=== PATIENT | female | born 1965 | race Caucasian/White ===

== ENCOUNTER 2024-07-27 01:20 | Inpatient (IN) | payer OTHER ==
[~2024-07-27] VITALS: Ht 160 cm; Wt 63.5 kg
[2024-07-27 03:03] LABS: BASOPHILS # (AUTO) 0.1 K/UL (0.0-0.2); BASOPHILS % (AUTO) 0.9 % (0.0-2.0); EOSINOPHILS # (AUTO) 0.1 K/uL (0.0-0.7); EOSINOPHILS % (AUTO) 1.2 % (0.0-7.0); HEMATOCRIT 43.9 % (31.2-41.9); HEMOGLOBIN 14.6 g/dL (10.9-14.3); LYMPHOCYTES # (AUTO) 1.5 K/uL (0.8-4.8); MEAN CORPUSCULAR HEMOGLOBIN 29.3 uug (24.7-32.8); MEAN CORPUSCULAR HGB CONC 33 g/dL (32.3-35.6); MEAN CORPUSCULAR VOLUME 87.9 fL (75.5-95.3); MONOCYTES # (AUTO) 0.4 K/uL (0.1-1.30); MONOCYTES % (AUTO) 4.3 % (0.0-11.0); NEUTROPHILS # (AUTO) 7.4 K/uL (1.8-8.9); NEUTROPHILS % (AUTO) 77.6 % (38.5-71.5); PLATELET COUNT (AUTO) 302 K/uL (179-408); RED BLOOD CELL COUNT(AUTO) 4.99 MIL/uL (3.63-4.92); RED CELL DISTRIBUTION WIDTH 14.2 % (12.3-17.7); WHITE BLOOD COUNT (AUTO) 9.6 K/uL (3.8-11.8)
[2024-07-27 03:06] LABS: DIFFERENTIAL COMMENT 1
[2024-07-27] MEDS ORDERED: KETOROLAC TROMETHAMINE 30 MG INJ ONE (03:10)
[2024-07-27] MEDS ORDERED: ONDANSETRON 4 MG/2 ML VIAL ONE (03:10)
[2024-07-27 03:13] LABS: *BILIRUBIN,URIN NEGATIVE (NEGATIVE); *BLOOD, URINE NEGATIVE (NEGATIVE); *CLARITY,URINE CLEAR (CLEAR); *COLOR,URINE YELLOW (YELLOW); *KETONES,URINE TRACE (NEGATIVE); *PROTEIN,URINE NEGATIVE (NEGATIVE); *UROBILINOGEN,URINE 0.2 E.U./dl (NORMAL); LEUKOCYTE ESTERASE ,URINE NEGATIVE (NEGATIVE); NITRITE, URINE NEGATIVE (NEGATIVE); PH,URINE 7.5 (5.0-8.0); UGLUCOSE NEGATIVE (NEGATIVE)
[2024-07-27 03:21] LABS: CALCIUM 9.1 mg/dL (8.5-10.1); CREATININE 0.6 mg/dL (0.6-1.3); POTASSIUM 4.1 mmol/L (3.5-5.1)
[2024-07-27] MEDS: ONDANSETRON 4 MG/2 ML VIAL IV ONE (03:22)
[2024-07-27] MEDS: KETOROLAC TROMETHAMINE 30 MG INJ IVP ONE (03:22)
[2024-07-27] MEDS: IV NORMAL SALINE 1000 ML BAG IV ONE ×2 (03:23→09:46)
[2024-07-27 03:25] LABS: ALBUMIN 3.7 g/dL (3.4-5.0); BILIRUBIN,DIRECT 0.1 mg/dL (0.0-0.2); BILIRUBIN,TOTAL 0.6 mg/dL (0.2-1.0)
[2024-07-27 03:32] LABS: BACTERIA,URINE FEW /HPF (NONE SEEN); RBC,URINE 0-3 /HPF (0-3); SQUAMOUS EPITHELIAL CELL,UR FEW /HPF (NONE SEEN); WBC,URINE NONE SEEN /HPF (0-3)
[2024-07-27 03:33] LABS: URINE AMORPHOUS URATE MODERATE /HPF
[2024-07-27] MEDS ORDERED: levoFLOXacin 500 MG/D5W 100 ML ONE (09:35)
[2024-07-27] MEDS: levoFLOXacin 500 MG/D5W 100ML PIGGYBACK IV ONE (09:46)
[2024-07-27] MEDS ORDERED: METRONIDAZOLE 500 MG/NS 100ML 100 ML IV ONE (11:09)
[2024-07-27] MEDS: METRONIDAZOLE 500 MG/NS 100 ML PIGGYBACK IV ONE (11:16)
[2024-07-27] MEDS ORDERED: REMEDY ESSENTIAL ZINC PASTE 113 GM TP PRN (11:45)
[2024-07-27] MEDS ORDERED: ONDANSETRON 4 MG/2 ML VIAL IV PRN (11:45)
[2024-07-27] MEDS ORDERED: MAGNESIUM HYDROXIDE 30 ML LIQUID UDC PO PRN (11:45)
[2024-07-27 13:17] VITALS: BP 117/76; TEMP 97.9; O2SAT 98
[2024-07-27] MEDS ORDERED: OMEP40CA21 PO (13:48)
[2024-07-27] MEDS ORDERED: LOSA25TA27 PO (13:48)
[2024-07-27] MEDS ORDERED: ROSU10TA2 PO (13:48)
[2024-07-27] MEDS ORDERED: TRAZ-257 PO (13:48)
[2024-07-27] MEDS: IV NS 1000 ML 1,000 ML IV PRN (13:52)
[2024-07-27] MEDS: METRONIDAZOLE 500 MG/NS 100ML 500 MG in PREMIXED 1 EACH IV SCH (14:04)
[2024-07-27] MEDS: NICOTINE 21 MG/24HR PATCH TD SCH (14:59)
[2024-07-27] MEDS: levoFLOXacin 500 MG/D5W 500 MG in PREMIXED 1 EACH IV SCH (15:00)
[2024-07-27 15:51] VITALS: BP 128/80; TEMP 98.4; O2SAT 96
[2024-07-27] MEDS ORDERED: FENTANYL CITRATE 250 MCG/5 ML AMPUL ONE (16:52)
[2024-07-27] MEDS ORDERED: ROCURONIUM BROMIDE 50 MG/5 ML VIAL ONE (16:52)
[2024-07-27] MEDS ORDERED: BUPIVACAINE/EPI PF 0.25% 10 ML VIAL IJ ONE (18:10)
[2024-07-27 19:45] VITALS: BP 160/98; TEMP 98; O2SAT 100
[2024-07-27] MEDS: ACETAMINOPHEN 325 MG TABLET PO PRN (22:27)
[2024-07-28] MEDS: KETOROLAC TROMETHAMINE 15 MG INJ IVP PRN (00:12)
[2024-07-28 04:55] VITALS: BP 129/95; TEMP 97.9; O2SAT 100
[2024-07-28 06:53] LABS: BASOPHILS # (AUTO) 0.1 K/UL (0.0-0.2); BASOPHILS % (AUTO) 0.7 % (0.0-2.0); EOSINOPHILS # (AUTO) 0.1 K/uL (0.0-0.7); EOSINOPHILS % (AUTO) 0.6 % (0.0-7.0); HEMATOCRIT 40.1 % (31.2-41.9); HEMOGLOBIN 13.7 g/dL (10.9-14.3); LYMPHOCYTES # (AUTO) 1.3 K/uL (0.8-4.8); LYMPHOCYTES % (AUTO) 13.9 % (20.5-51.5); MEAN CORPUSCULAR HGB CONC 34 g/dL (32.3-35.6); MEAN CORPUSCULAR VOLUME 87.9 fL (75.5-95.3); MONOCYTES # (AUTO) 0.8 K/uL (0.1-1.30); MONOCYTES % (AUTO) 8.5 % (0.0-11.0); NEUTROPHILS # (AUTO) 7.1 K/uL (1.8-8.9); NEUTROPHILS % (AUTO) 76.3 % (38.5-71.5); PLATELET COUNT (AUTO) 291 K/uL (179-408); RED BLOOD CELL COUNT(AUTO) 4.56 MIL/uL (3.63-4.92); RED CELL DISTRIBUTION WIDTH 13.9 % (12.3-17.7); WHITE BLOOD COUNT (AUTO) 9.3 K/uL (3.8-11.8)
[2024-07-28 07:05] LABS: CALCIUM 8.2 mg/dL (8.5-10.1); CREATININE 0.5 mg/dL (0.6-1.3); MAGNESIUM 1.9 mg/dL (1.8-2.4); PHOSPHOROUS 2.8 mg/dL (2.5-4.9); POTASSIUM 3.4 mmol/L (3.5-5.1)
[2024-07-28 07:07] LABS: DIFFERENTIAL COMMENT 1
[2024-07-28] MEDS: POTASSIUM CHLORIDE 20 MEQ POWDER PACKET GT ONE (11:50)
[2024-07-28 12:00] VITALS: BP 124/84; TEMP 98.2; O2SAT 100
[2024-07-28 16:00] VITALS: BP 132/74; TEMP 97.6; O2SAT 100
[2024-07-28] MEDS: DOCUSATE SODIUM 100 MG/10 ML LIQUID UDC PO SCH (18:24)
[2024-07-28 19:36] VITALS: BP 115/57; TEMP 98.2; O2SAT 97
[2024-07-28] MEDS: SENNOSIDES 1 TABLET PO SCH (21:03)
[2024-07-28] MEDS: ACETAMINOPHEN/CODEINE 300-30 MG TABLET PO PRN (21:23)
[2024-07-29 06:52] VITALS: BP 150/87; TEMP 97.8; O2SAT 98
[2024-07-29] MEDS ORDERED: LEVO500T90 PO (09:34)
[2024-07-29] MEDS ORDERED: METR-147 PO (09:34)
[2024-07-29 11:23] VITALS: BP 121/76; TEMP 98.3; O2SAT 96
[2024-07-29] MEDS ORDERED: METRONIDAZOLE 500 MG TABLET PO SCH (14:00)
== END 2024-07-29 12:15 | disposition home or self-care (01) | DRG 263 ==
LOC: ER 01:23 → MEDSURG3 12:43
PROVIDERS: ADMIT Internal Medicine; ATTEND Internal Medicine
PROC: 0FT44ZZ Resection of Gallbladder, Percutaneous Endoscopic Approach (ICD-10-PCS; principal; 2024-07-27 17:00)
DX: K80.00 Calculus of gallbladder with acute cholecystitis without obstruction (principal); E87.0 Hyperosmolality and hypernatremia; F17.210 Nicotine dependence, cigarettes, uncomplicated; Z88.6 Allergy status to analgesic agent; Z88.5 Allergy status to narcotic agent; Z88.0 Allergy status to penicillin; R16.0 Hepatomegaly, not elsewhere classified
CPT/HCPCS: 36415; 71045; 83605; 83690; 83735; 84100; 85025; 85730; 86850; 86900; 86901; 87040; A4606; G0378; J1885; J1956; J2405; J3010; J3490; J7040